=== PATIENT | female | born 1965 | race American Indian/Alaskan Native ===

== ENCOUNTER 2018-07-04 15:43 | Emergency (ER) | payer MEDICARE ==
--- NOTE | 2018-07-04 15:57 | Emergency Department Report ---
Stated Complaint: FACE PAIN Time Seen by Provider: 07/04/18 15:46 - HPI History of Present Illness: Pt is complaining of a "spider bite" that occurred october 2017 on left lateral abdomen, and again May 2018 under the jaw she states [place] [facility] [place] but not sure which medication she states she has noticed some drainage from the nodules present on the chin, but not on the abdomen no fever has had episodes of abscess in the past present in the axilla region she has a hx of DM which pt reports is under control VSS MSE complete MSE screening note: Focused history and physical exam performed. Due to findings the following was ordered: ED Disposition for MSE Condition: Stable
[2018-07-04] MEDS ORDERED: BACTRIM DS PO ONE (16:23)
--- NOTE | 2018-07-04 16:25 | Emergency Department Report ---
Abscess Boil HPI - HPI Chief Complaint: Skin/Abscess/Foreign Body Stated Complaint: FACE PAIN Time Seen by Provider: 07/04/18 15:46 Duration: >1 Week Location: Neck Severity: Mild History: Yes Pain, Yes Purulent Drainage, Yes Previous History, Yes Insect Bite, No Fever, No Numbness, No Foreign Body HPI: Patient is a 53-year-old female who comes to the ER today with concerns about some chronic abscesses on her neck from what she says is a spider bite. Patient's very histrionic and dates her initial bite back to summer. She shows me an old scarred area that she states is an abscess on her left abdomen. She states that that was created by brown recluse spider. Patient then shows me her neck which has 3 areas, that resemble folliculitis, but the patient says are forming abscesses from a black bite. Patient states she no longer lives where she was living getting bit by the spiders. Patient is tearful about these bites. She is here for antibiotics. Home Medications: Previous Rx's Medication Instructions Recorded Last Taken Type Sulfamethoxazole/Trimethoprim 1 each PO BID #10 tablet 07/04/18 Unknown Rx [Bactrim DS TAB] Allergies/Adverse Reactions: Allergies Allergy/AdvReac Type Severity Reaction Status Date / Time No Known Allergies Allergy Unverified 07/04/18 15:48 ED Review of Systems ROS: Stated complaint: FACE PAIN Other details as noted in HPI Comment: All other systems reviewed and negative Constitutional: denies: chills, fever Eyes: denies: eye pain ENT: denies: throat pain Respiratory: denies: orthopnea Cardiovascular: denies: orthopnea Endocrine: denies: intolerance to cold Gastrointestinal: denies: nausea Genitourinary: denies: urgency Musculoskeletal: denies: back pain Skin: as per HPI, lesions. denies: rash Neurological: denies: headache, weakness Psychiatric: denies: anxiety, depression Hematological/Lymphatic: denies: easy bleeding ED Past Medical Hx - Past Medical History Previous Medical History?: Yes Hx Diabetes: Yes Hx Asthma: Yes Additional medical history: Broken right femur, Multiple sclerosis, Unsteady gait - Surgical History Past Surgical History?: Yes Hx Cholecystectomy: Yes - Family History Family history: no significant - Social History Smoking Status: Never Smoker Substance Use Type: Prescribed - Medications Home Medications: Home Medications Medication Instructions Recorded Confirmed Last Taken Type Sulfamethoxazole/Trimethoprim 1 each PO BID #10 tablet 07/04/18 Unknown Rx [Bactrim DS TAB] ED Abscess Boil Physical Exam - Exam General: Vital signs noted. No distress. Alert and acting appropriately. Exam: Yes Normal Circulation, No Surrounding Cellulites/Erythema, No Heart Murmur Exam: 3 areas under chin that are draining. pt states where abscesses from spider bite. see hpi. ED Course Vital Signs 07/04/18 15:48 Temperature 98.2 F Pulse Rate 78 Blood Pressure 117/44 O2 Sat by Pulse 99 Oximetry - Reevaluation(s) Reevaluation #1: 07/04/18 16:31 no I/D needed Critical care attestation.: If time is entered above; I have spent that time in minutes in the direct care o f this critically ill patient, excluding procedure time. ED Medical Decision Making - Medical Decision Making a/c skin infection which pt states is due to spider bites many months ago The skin is open and draining. Will dc on bactrum with derm follow up. She sees a pain doctor for her chronic pain- I told her to continue those meds for the pain. pt is non toxic, afebrile and ambulatory on discharge Vital Signs 07/04/18 15:48 Temperature 98.2 F Pulse Rate 78 Blood Pressure 117/44 O2 Sat by Pulse 99 Oximetry ED Disposition Clinical Impression: Abscess Disposition: DC-01 TO HOME OR SELFCARE Is pt being admited?: No Does the pt Need Aspirin: No Condition: Stable Instructions: Abscess (ED) Additional Instructions: clean with epsom salts/ water follow up with dermatology referral below Prescriptions: Sulfamethoxazole/Trimethoprim [Bactrim DS TAB] 1 each PO BID #10 tablet Referrals: PAKO YE MD [Referring] - 3-5 Days Time of Disposition: 16:23
[2018-07-04 17:10] VITALS: BP 130/62
== END 2018-07-04 16:50 | disposition home or self-care (01) ==
LOC: ED 15:43
DX: L02.11 Cutaneous abscess of neck (principal); L02.211 Cutaneous abscess of abdominal wall; E11.9 Type 2 diabetes mellitus without complications; J45.909 Unspecified asthma, uncomplicated; Z90.49 Acquired absence of other specified parts of digestive tract
CPT/HCPCS: 99282